=== PATIENT | female | born 1980 | race African-American/Black ===

== ENCOUNTER 2016-04-23 02:24 | Emergency (ER) | payer OTHER ==
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
[2016-04-23 02:16] LABS: POC - CREATININE 0.89 mg/dL (0.44-1.03); POC - GFR >60.0 mL/min (>60)
[~2016-04-23 02:24] MED LIST: ATARAX PO; FLEXERIL PO; KETOCONAZOLE TOPICAL; KETOPROFEN PO
[2016-04-23 02:37] LABS: BASOPHIL# 0.1 X10e3 (0-0.3); BASOPHIL% 0.5 % (0-2.5); DIFF IND YES; EOSINOPHIL# 0.2 X10e3 (0-0.7); EOSINOPHIL% 1.4 % (0.0-7.0); HEMATOCRIT 35.3 % (35.0-45.0); HEMOGLOBIN 11.5 gm/dL (12.0-16.0); LYMPHOCYTE# 2.3 X10e3 (1.0-3.5); MEAN CELL VOLUME 89.3 FL (83-96); MEAN CORPUSCULAR HEMOGLOBIN 29.1 PG (28-34); MEAN CORPUSCULAR HGB CONC 32.5 g/dL (30-36); MEAN PLATELET VOLUME 9.1 FL (6.5-11.5); MONOCYTE# 0.9 X10e3 (0-1.0); MONOCYTE% 5.4 % (3.0-12.0); NEUTROPHIL# 12.7 X10e3 (1.5-7.1); NEUTROPHIL% 78.7 % (40-75); PLATELET COUNT 200 X10e3 (140-420); RED BLOOD COUNT 3.96 X10e (3.90-5.30); RED CELL DISTRIBUTION WIDTH 14.8 % (11.0-15.5); WHITE BLOOD COUNT 16.2 X10e3 (4.0-10.5)
[2016-04-23 02:55] LABS: ALBUMIN SERUM 3.9 g/dL (3.5-5.0); ALCOHOL BLOOD 142 mg/dL (0); ALKALINE PHOSPHATASE 55 U/L (32-92); ALT (SGPT) 36 U/L (10-40); AST (SGOT) 58 U/L (10-42); BILIRUBIN, DIRECT 0.2 mg/dL (0.0-0.2); BILIRUBIN,INDIRECT 0.7 mg/dL (0.0-0.9); BILIRUBIN,TOTAL 0.9 mg/dL (0.2-2.0); BLOOD UREA NITROGEN 10 mg/dL (9-23); BUN/CREATININE RATIO 11.11; CALCIUM SERUM 8.5 mg/dL (8.4-10.2); CARBON DIOXIDE 22 mmol/L (22-31); CHLORIDE 105 mmol/L (100-111); CREATININE SERUM 0.9 mg/dL (0.6-1.4); GLOM FILT RATE Estimated ABOVE60 mL/min (>60); GLUCOSE FASTING 119 mg/dL (70-110); POTASSIUM 3.3 mmol/L (3.5-5.1); PROTEIN TOTAL SERUM 6.6 g/dL (6.0-8.3); SODIUM 135 mmol/L (135-145)
[2016-04-23 03:54] LABS: PLATELET ESTIMATE NORMAL (NORMAL)
== END 2016-04-23 03:30 | disposition hospice, home (50) ==
LOC: CED 02:24
PROVIDERS: Emergency Medicine
DX: S32.012A Unstable burst fracture of first lumbar vertebra, initial encounter for closed fracture (principal); Z88.0 Allergy status to penicillin; Z79.899 Other long term (current) drug therapy; V49.40XA Driver injured in collision with unspecified motor vehicles in traffic accident, initial encounter
CPT/HCPCS: 36415; 70450; 71260; 72125; 73130; 74177; 80048; 80076; 82565; 84703; 85025; 90471; 90715; 96374; 96375; 99284; G0480; J2270; J2405; Q9967